=== PATIENT | male | born 1935 | race Caucasian/White ===

== ENCOUNTER 2018-04-03 13:58 | Emergency (ER) | payer MEDICARE, OTHER, SELFPAY ==
[2018-04-03 13:59] VITALS: BP 124/80; PULSE 65; RESP 18; TEMP 36.6; O2SAT 98; BMI 30.9
--- NOTE | 2018-04-03 14:37 | CT_ITS ---
STUDY: CT BRAIN WITHOUT CONTRAST REASON FOR EXAM: Male, 83 years old. Trauma RADIATION DOSAGE (If Supplied By Facility): CTDIvol = ( 44.99 ) mGy, DLP = ( 812.98 ) mGycm TECHNIQUE: Transaxial CT imaging of the brain was performed without administration of intravenous contrast material. Individualized dose optimization techniques were used for this CT. COMPARISON: None. FINDINGS: There is no acute bleed or infarct. There are chronic ischemic and atrophic changes. The ventricles are normal in configuration. There is no hydrocephalus. The visualized paranasal sinuses are clear. The mastoid air cells are well aerated. There is no skull fracture. CT/Brain/Head without Contrast IMPRESSION: No acute intracranial abnormality. Chronic ischemic and atrophic changes. Electronically Signed: Erick Bedolla, at 16:51 EDT Tel , Service support ,
--- NOTE | 2018-04-03 16:07 | ED.VISSUMM ---
- ER Visit Summary Date of Service: 04/03/18 Chief Complaint: Fall History of Present Illness: The patient is a 83 M who presents after a fall. Less than 1 hour ago he lost his balance and fell backwards striking the back of his head on concrete. He does note that he has gait instability and is unsteady at baseline. He has fallen before. He denies any injuries except to his head. He denies any chest pain abdominal pain back pain injury to extremities. He denies loss of consciousness or amnesia. He is not on any anticoagulation. Physical Examination: Afebrile vitals are stable There is a stellate laceration over the occipital scalp with a total laceration length of 6 cm this is divided mainly into 2 vertical lacerations with some stellate branches and some abrasion and macerated tissue with mild oozing no significant active bleeding GCS of 15 with no focal or lateralizing neurological deficits C-spine is nontender Heart regular rate and rhythm Lungs clear Active full range of motion ?4 extremities Test Results: CT of the head on my review shows no obvious acute process, radiology read pending. Emergency Department Course and Treatment: Patient's laceration was anesthetized with about 6 cc of local lidocaine and irrigated with 100 cc of sterile saline it was closed with a total of 10 karo. Patient still had some oozing and a Surgicel dressing was applied with good hemostasis. Patient and family were instructed on signs and symptoms to monitor for as well as local wound care. Patient will be discharged pending formal radiology read of CT of the head. Treatment Plan: [] Disposition: Discharge Impression: Closed head injury Scalp laceration This note was generated with [employer] dictation software. It may contain incorrect words, spelling, and punctuation that were not noted in review of the chart prior to signing ED Disposition - Plan for ED Patient: Chief Complaint: Head Injury Referrals: Sue Smith MD [Primary Care Provider] -
[2018-04-03 16:12] VITALS: BP 178/76; PULSE 88; RESP 18; O2SAT 96
--- NOTE | 2018-04-03 16:17 | ED.DEP ---
ED Disposition - Plan for ED Patient: Chief Complaint: Head Injury Instructions: ED Head Injury Closed, ED Laceration Scalp Stitch Or Stap Referrals: Sue Smith MD [Primary Care Provider] -
[2018-04-03 17:05] VITALS: BP 118/79; PULSE 61; RESP 15; O2SAT 95
== END 2018-04-03 17:06 | disposition home or self-care (01) ==
PROVIDERS: Emergency Provider Emergency Medicine; PCP Internal Medicine
DX: S01.01XA Laceration without foreign body of scalp, initial encounter (principal); W18.00XA Striking against unspecified object with subsequent fall, initial encounter; Y93.9 Activity, unspecified; Y92.89 Other specified places as the place of occurrence of the external cause; Y99.9 Unspecified external cause status; I10 Essential (primary) hypertension; E78.00 Pure hypercholesterolemia, unspecified; Z86.73 Personal history of transient ischemic attack (TIA), and cerebral infarction without residual deficits
CPT/HCPCS: 12002; 70450; 99283

== ENCOUNTER → 2019-01-05 12:44 | Outpatient (CLI) | payer MEDICARE, SELFPAY ==
[2018-12-10 13:15] VITALS: BMI 32.2
--- NOTE | 2019-01-05 12:47 | ECHOD_ITS ---
Reason For Study: PHTN Procedure This was a 2D Doppler, Color Flow transthoracic echocardiogram. Exam performed in department. Left Ventricle Normal size and thickness. The estimated ejection fraction is 65 %. Paced septal motion. No regional wall motion abnormalities noted. Right Ventricle Normal size and thickness. ICD or pacer leads identified within the right ventricle. Normal systolic function. Atria The left atrium is severely enlarged. Normal right atrium. Normal atrial septum. Mitral Valve The mitral valve is structurally normal. No prolapse or stenosis seen. Trivial mitral valve insufficiency. Tricuspid Valve Normal tricuspid valve. Mild (1+) tricuspid valve insufficiency. Right ventricular systolic pressure estimated to be 30 mmHg. Aortic Valve Trivial aortic valve insufficiency. Stable appearing bioprosthetic aortic valve apparatus. Pulmonic Valve Normal pulmonic valve. Great Vessels Normal aortic root. Normal arch. Normal inferior vena cava. Inferior vena cava collapse with sniff. Pericardium/Pleural No pericardial effusion. MMode/2D Measurements & Calculations LVIDd: 4.4 cm IVSd: 1.3 cm LVOT diam: 2.0 cm LVIDs: 2.7 cm LVPWd: 1.1 cm LVOT area: 3.1 cm2 RVDd: 4.0 cm FS: 38.0 % Ao root diam: 3.6 cm LAV(MOD-bp): 107.1 ml LA A4 area: 31.6 cm2 LAV(MOD-bp) Indexed: 48.8 ml/m2 LAV(MOD-sp2): 85.7 ml LAV(MOD-sp4): 120.0 ml LA dimension(2D): 5.4 cm RA A4 area: 14.0 cm2 Doppler Measurements & Calculations MV E max jackson: 107.4 cm/sec Lat Peak E' Jackson: 8.0 cm/sec Med Peak E' Jackson: 5.7 cm/sec MV A max jackson: 74.0 cm/sec E/E' lat: 13.5 E/E' med: 18.9 MV E/A: 1.5 Ao V2 max: 199.6 cm/sec LV V1 max: 138.0 cm/sec SV(LVOT): 92.7 ml Ao max P.9 mmHg LV V1 max P.6 mmHg Ao V2 mean: 137.3 cm/sec LV V1 mean P.8 mmHg Ao mean P.4 mmHg LV V1 mean: 92.4 cm/sec Ao V2 VTI: 41.6 cm LV V1 VTI: 29.4 cm VIRGINIA(I,D): 2.2 cm2 VIRGINIA(V,D): 2.2 cm2 PA V2 max: 88.4 cm/sec TR max jackson: 236.9 cm/sec TR max P.6 mmHg Interpretation Summary The estimated ejection fraction is 65 %. The left atrium is severely enlarged. Trivial mitral valve insufficiency. Mild (1+) tricuspid valve insufficiency. Right ventricular systolic pressure estimated to be 30 mmHg. 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 Trivial aortic valve insufficiency. Compared to echo report dated 12/27/2016, no appreciable changes noted. Ordering Physician: Erik Trujillo Referring Physician: Erik Trujillo Performed By: Swathi Farah RDCS
== END ==
PROVIDERS: Family Provider Family Medicine Sports Medicine; PCP Family Medicine Sports Medicine; Referring Provider Internal Medicine Cardiovascular Disease; Visit Provider Internal Medicine Cardiovascular Disease
DX: E78.5 Hyperlipidemia, unspecified (principal); I71.2 Thoracic aortic aneurysm, without rupture; I49.5 Sick sinus syndrome; I35.0 Nonrheumatic aortic (valve) stenosis; I27.21 Secondary pulmonary arterial hypertension; I10 Essential (primary) hypertension; Z95.0 Presence of cardiac pacemaker; Z95.2 Presence of prosthetic heart valve
CPT/HCPCS: 93306

== ENCOUNTER → 2020-01-24 12:52 | Outpatient (CLI) | payer MEDICARE, SELFPAY ==
[2020-01-06 13:37] VITALS: BMI 32.6
--- NOTE | 2020-01-24 12:52 | ECHOCS_ITS ---
Reason For Study: Valve Replacement Procedure This was a 2D Doppler, Color Flow transthoracic echocardiogram. Contrast injection was performed. The study was technically difficult. Exam performed in department. Left Ventricle Moderate concentric left ventricular hypertrophy. The estimated ejection fraction is 65 %. Septal motion consistent with IVCD. Paced septal motion. No regional wall motion abnormalities noted. Right Ventricle Normal size and thickness. ICD or pacer leads identified within the right ventricle. Normal systolic function. Atria The left atrium is moderately enlarged. Normal right atrium. ICD or pacer leads identified within the right atrium. Normal atrial septum. Mitral Valve The mitral valve is structurally normal. No prolapse or stenosis seen. Trivial mitral valve insufficiency. Tricuspid Valve Normal tricuspid valve. Mild to moderate (1-2+) tricuspid valve insufficiency. Right ventricular systolic pressure estimated to be 34 mmHg. Aortic Valve Peak aortic valve gradient 19 mmHg. Mean aortic valve gradient 10 mmHg. Trivial aortic valve insufficiency. Stable appearing bioprosthetic aortic valve apparatus. Pulmonic Valve Normal pulmonic valve. Great Vessels Normal aortic root. Normal inferior vena cava. Inferior vena cava collapse with sniff. Pericardium/Pleural No pericardial effusion. Medication 22 gauge I.V. with prn adaptor inserted into left arm. Diluted definity 2.5ml given slow IV push to enhance endocardial definition. MMode/2D Measurements & Calculations LVIDd: 3.7 cm IVSd: 1.8 cm LVOT diam: 2.0 cm LVIDs: 2.9 cm LVPWd: 1.6 cm FS: 20.5 % LVOT area: 3.1 cm2 LA dimension: 4.6 cm LAV(MOD-bp): 91.3 ml LA A4 area: 25.6 cm2 LAV(MOD-bp) Indexed: 40.8 ml/m2 LAV(MOD-sp2): 94.2 ml LAV(MOD-sp4): 91.0 ml RA A4 area: 21.4 cm2 Time Measurements MV dec time: 0.24 sec Doppler Measurements & Calculations MV E max jackson: 120.2 cm/sec Lat Peak E' Jackson: 8.3 cm/sec Med Peak E' Jackson: 5.0 cm/sec MV A max jackson: 78.7 cm/sec E/E' lat: 14.4 E/E' med: 24.2 MV E/A: 1.5 MV V2 max: 125.2 cm/sec MV P1/2t max jackson: 123.3 cm/sec Ao V2 max: 218.3 cm/sec MV max P.3 mmHg MV P1/2t: 101.5 msec Ao max P.1 mmHg MV V2 mean: 62.2 cm/sec MV dec slope: 355.8 cm/sec2 Ao V2 mean: 150.3 cm/sec MV mean P.9 mmHg Ao mean P.4 mmHg MV V2 VTI: 38.7 cm MVA(P1/2t): 2.2 cm2 Ao V2 VTI: 44.9 cm MVA(VTI): 2.1 cm2 VIRGINIA(I,D): 1.8 cm2 VIR[place]IA(V,D): 1.6 cm2 AI max jackson: 379.0 cm/sec LV V1 max: 111.2 cm/sec SV(LVOT): 82.6 ml AI max P.4 mmHg LV V1 max P.9 mmHg AI dec slope: 230.5 cm/sec2 LV V1 mean P.4 mmHg AI P1/2t: 481.5 msec LV V1 mean: 70.9 cm/sec LV V1 VTI: 26.3 cm PA V2 max: 98.2 cm/sec TR max jackson: 270.1 cm/sec TR max P.2 mmHg Interpretation Summary The estimated ejection fraction is 65 %. The left atrium is moderately enlarged. Trivial mitral valve insufficiency. Mild to moderate (1-2+) tricuspid valve insufficiency. Right ventricular systolic pressure estimated to be 34 mmHg. 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 Trivial aortic valve insufficiency. Compared to echo report dated 01/05/2019, no appreciable changes noted. The study was technically difficult. Contrast injection was performed. Ordering Physician: Erik Trujillo Referring Physician: Erik Trujillo Performed By: Sampson Ortiz RCS
[2020-01-24 13:39] LABS: AST(SGOT) 31 U/L (15-37); Alanine Aminotransfer ALT/SGPT 26 U/L (16-61); Albumin, Serum 3.8 g/dL (3.2-5.0); Alkaline Phosphatase 80 U/L (45-117); Bilirubin, Direct 0.18 mg/dL (0.00-0.30); Cholesterol 231 mg/dL (200); Globulin 5.1 g/dL (2.2-4.2); High Density Lipoprotein 44 mg/dL; Protein, Total 8.9 g/dL (6.4-8.2); Triglycerides 160 mg/dL; Very Low Density Lipoprotein 32 mg/dL (5-40)
== END ==
PROVIDERS: PCP Internal Medicine; Referring Provider Internal Medicine Cardiovascular Disease; Visit Provider Internal Medicine Cardiovascular Disease
DX: I71.2 Thoracic aortic aneurysm, without rupture (principal); Z95.2 Presence of prosthetic heart valve; E78.5 Hyperlipidemia, unspecified
CPT/HCPCS: 36415; 80061; 80076; 93306; Q9957; A4216; C8929

== ENCOUNTER → 2020-02-01 12:24 | Outpatient (CLI) | payer MEDICARE, SELFPAY ==
[2020-01-06 13:37] VITALS: BMI 32.6
--- NOTE | 2020-02-01 12:29 | STEWCON_ITS ---
Reason For Study: CAD/ASHD Stress Results Protocol: Modified Amari Protocol With Definity Maximum Predicted HR: 136 bpm Target HR: 116 bpm % Maximum Predicted HR: 81 % DurationHeart Rate Stage (mm:ss) (bpm) BP Comment BASELINE 60 114/684 CC TOTAL FOR TEST STAGE 0 3:00 97 114/60 STAGE 1/2 3:00 100 142/62 STAGE 1 1:32 110 / SLIGHT SOB, NO CHEST PAIN RECOVERY 83 128/78 Stress Duration: 7:32 mm:ss Maximum Stress HR: 110 bpm Baseline Echocardiogram Findings The estimated ejection fraction is 65 %. Stress Echo Wall motion Data Resting WM Intermediate WM Stress WM Resting Wall Motion Wall Motion Stress No regional wall motion No regional wall motion abnormalities noted. abnormalities noted. EKG Data The baseline ECG displays normal sinus rhythm. The maximum heart rate attained was 111 beats per minute. This was 81% of maximum predicted heart rate. During stress, there were no ST or T wave changes noted to suggest ischemia. No clinical angina was noted. No arrhythmias noted. Interpretation Summary The estimated ejection fraction is 65 %. Normal, adequate, modified Amari treadmill echocardiogram. Negative for ischemia by EKG and echocardiographic criteria. No anginal symptoms noted. No arrhythmias noted. Decrease sensitivity due to poor echo windows requiring Definity agent as well as baseline left bundle branch block. Although the patient did not reach target heart rate, his rate pressure product of 14,342 made this an adequate test. Average exercise capacity for age. Test terminated due to the attainment target heart rate, dyspnea. No complications. The study was technically difficult. Contrast injection was performed. Ordering Physician: Erik Trujillo Referring Physician: Erik Trujillo Performed By: Rita Cramer, RDCS, RVT
== END ==
PROVIDERS: Referring Provider Internal Medicine Cardiovascular Disease; Visit Provider Internal Medicine Cardiovascular Disease
DX: I25.10 Atherosclerotic heart disease of native coronary artery without angina pectoris (principal); I49.5 Sick sinus syndrome; E78.5 Hyperlipidemia, unspecified; I10 Essential (primary) hypertension; Z95.2 Presence of prosthetic heart valve
CPT/HCPCS: 93017; 93350; Q9957; A4216; C8928